=== PATIENT | male | born 1960 | race Caucasian/White ===

== ENCOUNTER 2023-02-12 14:02 | Emergency (ER) | payer BC, SELFPAY ==
[2023-02-12 14:04] VITALS: BP 133/74; PULSE 77; RESP 16; TEMP 37.2; O2SAT 96; BMI 28.2
--- NOTE | 2023-02-12 15:06 | PC.NURSE ---
Dr. Farmer at [facility] for pt eval
--- NOTE | 2023-02-12 15:10 | HMH.EDGENADL ---
Discharge Plan Disposition Patient Disposition: Home, Self-Care Prescriptions Prescriptions: New amoxicillin-pot clavulanate 875-125 mg tablet 1 tab PO BID 7 Days Qty: 14 0RF ofloxacin 0.3 % drops 5 drp otic (ear) DAILY 7 Days Qty: 5 0RF Referrals Follow up/Referrals: Manny Barnes [Primary Care Provider] - See instructions Activity Restrictions/Add. Instructions Additional Instructions/Restrictions: At this time it was felt you are safe to be discharged home. If new or worsening symptoms please do not hesitate to return the emergency department. Please take antibiotics and follow-up with ENT as discussed. Clinical Impressions Clinical Impression: Otitis externa, Eschar Discharge ED Provider: Penelope Byrd General Adult HPI General Chief complaint: Skin/Abscess/Foreign Body Stated complaint: left ear pain, ao 1.5 mnths ago Time Seen by Provider: 02/12/23 15:00 Mode of Arrival: Ambulatory Source of Information: Patient Limitations: No Limitations Description of Symptoms (Recalled from ER Triage Doc. by RN): Patient reports having a piece of a stick stuck in his ear approx 2 months ago that had to be removed by ENT. States that same ear started hurting again 3 days ago and he feels like there may be a piece of that stick still in his ear. History of Present Illness HPI narrative: Patient is a 62-year-old male with no pertinent past medical history presents emergency department for evaluation of ear pain. 2 months ago patient had a stick wedged in his external auditory canal which was removed by his PCP. Subsequent follow-up with ENT was notable for traumatic eschar in his external auditory canal which was undergoing expectant management. Over the last 24 hours he has had worsening pain and presents here for continued evaluation due to inability to get in with ENT until after the new year. No other acute complaints at this time besides ear pain. Related Data Previous Rx's Medication Instructions Recorded amoxicillin 875 mg-potassium 1 tab PO BID Otitis Externa 7 days 02/12/23 clavulanate 125 mg tablet #14 tabs ofloxacin 0.3 % ear drops 5 drp otic (ear) DAILY otitis 02/12/23 externa 7 days #5 mL Allergies Allergy/AdvReac Type Severity Reaction Status Date / Time No Known Allergies Allergy Verified 02/12/23 14:25 [facility] Disclaimer: The information contained in this section may have been updated after the patient was seen, as this information can be updated by other users. Social History Smoking Status: Unknown if ever smoked alcohol intake: never current occupational status: other Travel in the last 8 weeks: None ROS Obtained: Yes Systems reviewed as appropriate & no additional complaints except as documented Physical Exam General General appearance: alert and in no apparent distress Head Head exam: atraumatic and normocephalic Eye Eye exam: Present PERRL and EOMI ENT ENT exam: Present mucous membranes moist and other (Right TM and external auditory canal normal. Left TM normal, there is a eschar without active bleeding in the external auditory canal, mild erythema surrounding this. No retroauricular tenderness, no anterior effacement of the pinna.) Neck Neck exam: Present normal inspection Chest Chest inspection: Present normal inspection and symmetric chest wall rise Respiratory Respiratory exam: Absent respiratory distress Cardiovascular Cardiovascular exam: Present regular rate and normal rhythm Extremities Exam Extremities exam: Present normal inspection Neurological Exam Neurological exam: Present alert; Absent motor sensory deficit Psychiatric Psychiatric exam: Present normal affect Skin Skin exam: Present warm and dry Medical Decision Making Evaristo Inquiry Pt receiving controlled substance: No Vital Signs: 02/12/23 14:04 Temperature 99.0 F Temperature Source Oral Pulse Rate [Radial] 77 Respiratory Rate 16 Blood Pressure [Right Arm] 133/7
[2023-02-12 15:23] VITALS: BP 133/74; PULSE 77; RESP 16; TEMP 37.2; O2SAT 96
== END 2023-02-12 15:24 | disposition home or self-care (01) ==
PROVIDERS: Emergency Provider Student in an Organized Health Care Education/Training Program; PCP Family Medicine
DX: H92.02 Otalgia, left ear (principal); H60.92 Unspecified otitis externa, left ear; R23.4 Changes in skin texture
CPT/HCPCS: 99283